=== PATIENT | male | born 1960 | race Caucasian/White ===

== ENCOUNTER 2020-06-15 19:24 | Emergency (ER) | payer MEDICARE, SELFPAY ==
[2020-06-15 19:48] VITALS: BP 150/75; PULSE 78; RESP 22; TEMP 35.6; O2SAT 96; BMI 24.4
--- NOTE | 2020-06-15 20:55 | XR_ITS ---
WS: [id number] Exam: XR chest 2V* [id number] Date/Time of Exam: 06/15/2020 8:55 PM Reason For Exam: cough Comparison 06/15/2017. Findings: The lungs are clear and fully expanded. Costophrenic angles are sharp. No infiltrates. Bronchovascula r relief appears normal. Cardiac silhouette is unremarkable. Bony elements are intact. XR/XR chest 2V* [id number] IMPRESSION: Unremarkable chest radiograph.
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
[2020-06-15 21:49] VITALS: BP 145/73; PULSE 75; RESP 19; O2SAT 95
[2020-06-15] MEDS: levoFLOXacin 500 mg Tablet PO (21:49)
== END 2020-06-15 21:49 | disposition home or self-care (01) ==
PROVIDERS: Emergency Provider Nurse Practitioner Family
DX: J02.9 Acute pharyngitis, unspecified (principal)
CPT/HCPCS: 12345; 71046; 99281; 99283

== ENCOUNTER 2021-10-19 07:05 | Day surgery (SDC) | payer MEDICARE, MEDICAID, SELFPAY ==
[2021-10-17 09:51] VITALS: BMI 24.4
[2021-10-19 07:23] VITALS: BP 105/81; PULSE 88; RESP 18; TEMP 36.1; O2SAT 96
[2021-10-19] MEDS: sodium chloride 0.9% 1,000 ML 30 ML IV (07:32)
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
--- NOTE | 2021-10-19 08:37 | W.PM.OPSUD ---
Surgery/Procedure H&P Update DATE OF PROCEDURE: October 19, 2021 DATE H&P PERFORMED: 10/09/21 CHANGES TO PREVIOUS DOCUMENTATION: None PREOP DIAGNOSIS: Diarrhea PRIMARY INDICATION FOR PROCEDURE: Chronic diarrhea PLANNED PROCEDURE: Operation Date: 10/19/21 08:30 Proposed Procedures p [id number]/ diarrhea(Not Applicable) - Francisco Javier Mckeon MD Related Problem List Diagnoses (1) Chronic diarrhea: Risks and benefits of the procedure were discussed with the patient including the risk of bleeding, perforation, and sedation.
[2021-10-19 09:06] VITALS: BP 95/67; PULSE 76; RESP 16; TEMP 36.2; O2SAT 93
[2021-10-19 09:23] VITALS: BP 112/85; PULSE 75; RESP 18; O2SAT 93
--- NOTE | 2021-10-19 11:30 | ANE.PACU2 ---
Inpatient post-anesthesia follow up: Airway intact: Yes Vital signs: Temperature 97.1 F Pulse Rate 75 Respiratory Rate 18 Blood Pressure 112/85 Pulse Oximetry 93 Oxygen Delivery Me thod Room Air Oxygen Flow Rate Fraction of Inspir ed Oxygen Hydration adequate: Yes Nausea and vomiting: No Pain level: 1 Mental status: Baseline
== END 2021-10-19 09:32 | disposition home or self-care (01) ==
PROVIDERS: Visit Provider Family Medicine
PROC: 0DJD8ZZ Inspection of Lower Intestinal Tract, Via Natural or Artificial Opening Endoscopic (ICD-10-PCS; CPT 45378; principal; 2021-10-19 08:30)
DX: K52.9 Noninfective gastroenteritis and colitis, unspecified (principal); D12.3 Benign neoplasm of transverse colon; F17.200 Nicotine dependence, unspecified, uncomplicated; J44.9 Chronic obstructive pulmonary disease, unspecified; K21.9 Gastro-esophageal reflux disease without esophagitis
CPT/HCPCS: 12345; 45385; 88305; J2704; J3490; J7030

== ENCOUNTER 2022-06-25 09:17 | Emergency (ER) | payer MEDICARE, MEDICAID, SELFPAY ==
[2022-06-25 09:29] VITALS: BP 129/81; PULSE 71; RESP 16; TEMP 36.4; O2SAT 95; BMI 23.4
--- NOTE | 2022-06-25 09:38 | XRR_ITS ---
PROCEDURE INFORMATION: Exam: XR Right Ribs with PA Chest Exam date and time: 06/25/2022 9:45 AM Age: 61 years old Clinical indication: Pain and injury or trauma; Fall; Rib area; Blunt trauma (contusions or hematomas); Chest wall pain; Right; Injury details: Fell and hit door on the RT side. Pain is on the RT lower side; Additional info: Rib pain TECHNIQUE: Imaging protocol: Radiologic exam of the Right ribs with PA chest. Views: 3 views COMPARISON: CR XR chest 2V* [id number] 06/15/2020 9:27 PM FINDINGS: Lungs: Small benign calcified granulomas are present in the lung bases.. No consolidation. Pleural spaces: Unremarkable. No pleural effusion. No pneumothorax. Heart/Mediastinum: Unremarkable. No cardiomegaly. Bones/joints: There is a fracture of the right 9th rib with about 9 mm of displacement. XR/XR ribs RT mn 3V w CXR1V [id number] IMPRESSION: Mildly displaced right 9th rib fracture.
[2022-06-25] MEDS: HYDROcodone-acetaminophen 5-325 mg Tablet 2 TAB PO (09:57)
[2022-06-25] MEDS: tetanus-dipt-pertussis 0.5 mL SDV IM (10:42)
--- NOTE | 2022-06-25 13:46 | ED_ITS ---
HPI - Fall General: Chief Complaint: Fall Stated Complaint: fall, right side rib pain Time Seen by Provider: 06/25/22 09:38 Source: patient Mode of arrival: ambulatory History of Present Illness: 61-year-old male presents emergency room yesterday he was getting out of a skid stock unloader through a front entry door. The door became loose from the hinges he was trying to keep it from falling and breaking a course of doing so he slept and landed on the edge of the sidewall of the stock unloader bucket on his right ribs. He has severe pain with any movement. He has been able to breathe without difficulty but deep breathing does cause discomfort. He denies fever sweats or chills. MD complaint: fall Onset (ago): day(s) (1) Fall from: standing Place fall occurred: home Loss of consciousness: None Prolonged down time: no Symptoms prior to fall: none Context: tripped/slipped Location of injury: chest (Right ribs) Associated symptoms-after fall: Reports chest pain; Denies abdominal pain, confusion, difficulty walking, headache(s), hematuria, lightheadedness, neck pain, numbness, short of breath, vertigo or weakness Review of Systems Const: Denies: fever(s), chills, body aches, change in appetite, fatigue or malaise ENMT: Denies: throat pain, ear or mastoid pain, nasal discharge or nasal congestion Card: Reports: chest pain; Denies: palpitations, irregular heart rhythm, edema or lightheadedness Resp: Denies: dyspnea, productive cough or non-productive cough GI: Denies: abdominal pain, nausea or vomiting : Denies: hematuria Musc: Denies: neck pain Skin/Breast: Denies: rash or pruritus Neuro: Denies: headache(s), difficulty walking, vertigo or confusion PFSH ED PFSH: Medical History (Updated 06/25/22 @ 14:28 by Mendez Marmolejo DO) Benign enlargement of prostate Chronic obstructive pulmonary disease, unspecified Chronic sinusitis, unspecified Dermatitis, unspecified Emphysema lung Hepatitis C Lumbago with sciatica, unspecified side Lyme disease, unspecified Non-Hodgkin lymphoma, unspecified, unspecified site Non-Hodgkin lymphoma, unspecified, unspecified site Other muscle spasm Surgical History (Updated 01/10/23 @ 14:28 by Mendez Marmolejo DO) H/O bladder repair surgery H/O colonoscopy Family History Father Cancer Social History Smoking and tobacco status: current every day smoker Physical Exam Const: GENERAL APPEARANCE: cooperative and comfortable ORIENTATION/CONSCIOUSNESS: Yes awake, Yes oriented to person, Yes oriented to place and Yes oriented to time HENMT: COMMON NORMALS: normocephalic, atraumatic and hearing grossly normal bilaterally HEAD & SCALP: normocephalic and atraumatic Resp: COMMON NORMALS: normal respiratory effort, No retractions, No use of accessory muscles and clear to auscultation bilaterally AUSCULTATION: clear to auscultation bilaterally Cardio: COMMON NORMALS: regular rate, regular rhythm and No murmurs present (Cardio) RATE: regular rate RHYTHM: regular rhythm GI: COMMON NORMALS: Soft to palpation and No hepatosplenomegaly present AUSCULTATION: Yes normoactive bowel sounds PALPATION: Yes Soft to palpation, No Tenderness to palpation present (GI), No Guarding due to palpation present (GI) and Yes No hepatosplenomegaly present Extremity: COMMON NORMALS: normal to inspection, capillary refill normal, no clubbing, cyanosis or edema, no calf tenderness and no pedal edema Neuro: SENSORIUM/ORIENTATION: Yes oriented to person, Yes oriented to place and Yes oriented to time Skin: COMMON NORMALS: no rashes or lesions noted GENERAL SKIN EXAM: no rashes or lesions noted Course Vital Signs: Vital signs: Vital Signs Temperature 97.5 F L 06/25/22 09:29 Pulse Rate 71 06/25/22 09:29 Respiratory Rate 16 06/25/22 09:29 Blood Pressure 129/81 06/25/22 09:29 Pulse Oximetry 95 06/25/22 09:29 Oxygen Delivery Me thod 06/25/22 09:29 MDM - Fall Medical Decision Making Closed fracture ninth rib lung intact. Discussed with the patient hydrocodone for pain ice discussed with him how to splint if he coughs or needs to take a deep breath avoid rib belts. Follow-up with primary care if not improving Medical Records I reviewed the patient's medical records. Lab Data I reviewed the patient's lab results. Radiology Impressions Ribs X-Ray 06/25/22 09:38 IMPRESSION: Mildly displaced right 9th rib fracture. Discharge Plan Discharge Patient Disposition: Home Clinical Impression: Closed rib fracture Condition: Stable Prescriptions: New hydrocodone-acetaminophen 5-325 mg tablet 1 tab PO Q6H PRN (Reason: pain) Qty: 25 0RF No Action amoxicillin 500 mg capsule 500 mg PO BID 7 Days Qty: 14 0RF Discharge Orders: Discharge ED (Routine); Ordered 06/25/22 Ordered By: Mendez Marmolejo Referrals: Jasmyn Black FNP [Primary Care Provider] - Discharge Diet: Usual diet Discharge Activity: Increase activity as tolerated Patient Instructions: Opioid Safety, Pain Management Activity Restrictions/Additional Instructions: You were seen today for rib pain after a fall. You did have a nondisplaced rib fracture. Use pain medicines above as needed. You can use ice over that area as well. You may increase your activity as you wish however initially any increased lifting twisting bending to the torso will likely significantly increase pain. If he has significant difficulty or worsening with shortness of breath return to the emergency room Coding Level of Care Code ED Manager Pediatric for Ciro Morales
== END 2022-06-25 10:44 | disposition home or self-care (01) ==
PROVIDERS: Emergency Provider Family Medicine; PCP Nurse Practitioner Family
DX: S22.31XA Fracture of one rib, right side, initial encounter for closed fracture (principal); J44.9 Chronic obstructive pulmonary disease, unspecified; Z86.19 Personal history of other infectious and parasitic diseases; Z85.72 Personal history of non-Hodgkin lymphomas; F17.210 Nicotine dependence, cigarettes, uncomplicated; W01.198A Fall on same level from slipping, tripping and stumbling with subsequent striking against other object, initial encounter; Z23 Encounter for immunization
CPT/HCPCS: 71101; 90471; 90715; 99284

== ENCOUNTER 2022-11-26 16:28 | Outpatient (CLI) | payer MEDICARE, MEDICAID, SELFPAY ==
--- NOTE | 2022-11-26 16:37 | CT_ITS ---
WS: [id number] LDCT LUNG CANCER SCREENING HISTORY: NICOTINE DEPENDENCE, CIGARETTES, UNCOMPLICATED TECHNIQUE: Axial imaging performed from the apices to 1 cm below the costophrenic angles. Coronal and sagittal reformats are submitted with axial MIP series. All CT scans at [facility] use at least one of these dose optimization techniques: automated exposure control; mA and/or kV adjustment per patient size (includes targeted exams where dose is matched to clinical indication); or iterativ e reconstruction. DLP: 62.49 mGy.cm DIvol: Mean CTDIvol: 1.10 (mGy) COMPARISON: None available. Diagnostic quality: Satisfactory Lungs: 3 mm noncalcified nodule LEFT upper lobe. Bilateral calcified granulomata. Subsegmental linear areas of atelectasis at the lung bases. No pneumonia. No endobronchial lesions. Heart: Normal size heart with no pericardial effusion.. Other findings: Calcified hilar lymph nodes. Minimal atherosclerosis aorta. No adrenal mass. Remote l ateral inferior RIGHT rib fracture. CT/CT lung screening [id number] IMPRESSION: LUNG-RADS: 2-Benign Appearance or Behavior FOLLOW UP: 12 Month: Continue annual screening with LDCT OTHER FINDINGS (S MODIFIER): None.
== END 2022-11-26 16:29 | disposition home or self-care (01) ==
LOC: RAD 16:33
PROVIDERS: PCP Internal Medicine; Visit Provider Internal Medicine
DX: Z12.2 Encounter for screening for malignant neoplasm of respiratory organs (principal); F17.210 Nicotine dependence, cigarettes, uncomplicated
CPT/HCPCS: 71271

== ENCOUNTER 2023-01-24 09:18 | Emergency (ER) | payer MEDICARE, SELFPAY ==
[2023-01-24] VITALS (8 sets, daily range): BP systolic 108–136; BP diastolic 72–87; PULSE 68–88; RESP 18; TEMP 36.8; O2SAT 88–98; BMI 25.1
--- NOTE | 2023-01-24 09:19 | W.ED.ALLEREA ---
HPI - Allergic Reaction General: Chief complaint: Allergic Reaction Stated complaint: Allergic Reaction Time Seen by Provider: 01/24/23 09:19 History of Present Illness: HPI narrative: Mr. Hawk is a 62-year-old gentleman presenting to the emergency department for evaluation of anaphylaxis. He notes chronic allergy type symptoms with frequent rhinorrhea and history of deviated septum. He has been on multiple courses of steroids and is still short of breath recently though no baseline oxygen requirement. He was at ENT clinic getting allergy testing and had an anaphylactic reaction with throat soreness/tightness, shortness of breath, nausea, itchy rash. He was given 50 mg Benadryl, 10 mg Decadron, 2 doses of subcutaneous epinephrine. He still feels mildly short of breath however largely symptoms have improved. He became more nauseous for EMS and was given Zofran. Denies similar episodes in the past. Severe intensity at worst and currently mild to moderate. No other specific changes in health, exacerbating, or alleviating factors identified. Review of Systems General: Reports: 10 or more systems reviewed and unremarkable except in HPI and below PFSH ED PFSH: Medical History Benign enlargement of prostate Chronic obstructive pulmonary disease, unspecified Chronic sinusitis, unspecified Dermatitis, unspecified Emphysema lung Hepatitis C Lumbago with sciatica, unspecified side Lyme disease, unspecified Non-Hodgkin lymphoma, unspecified, unspecified site Non-Hodgkin lymphoma, unspecified, unspecified site Other muscle spasm Surgical History H/O bladder repair surgery H/O colonoscopy Family History Father Cancer Social History Smoking and tobacco status: current every day smoker Physical Exam Const: COMMON NORMALS: alert GENERAL APPEARANCE: cooperative and well developed HENMT: COMMON NORMALS: normocephalic and atraumatic HEAD & SCALP: normocephalic and atraumatic THROAT: posterior oropharynx normal Eye: COMMON NORMALS: conjunctivae normal CONJUNCTIVA: Yes conjunctivae normal SCLERA: sclerae normal Neck/C-Spine: COMMON NORMALS: supple GENERAL: Yes trachea midline Resp: COMMON NORMALS: normal respiratory effort EFFORT & INSPECTION: Yes able to speak in complete sentences AUSCULTATION: wheezes and diminished lung sounds Cardio: COMMON NORMALS: regular rate and regular rhythm RATE: regular rate RHYTHM: regular rhythm GI: COMMON NORMALS: Soft to palpation PALPATION: Yes Soft to palpation and No Tenderness to palpation present (GI) PERCUSSION: normal to percussion Extremity: GENERAL: Yes normal exam except as noted and No edema Neuro: COMMON NORMALS: moves all extremities SENSORIUM/ORIENTATION: Yes alert and No Orientation impaired Psych: COMMON NORMALS: mental status grossly normal and Normal thought process present THOUGHT PROCESS: Normal thought process present Course Vital Signs: Vital signs: Vital Signs Temperature 98.3 F 01/24/23 09:20 Pulse Rate 88 01/24/23 12:18 Respiratory Rate 18 01/24/23 12:35 Blood Pressure 108/72 01/24/23 12:18 Pulse Oximetry 98 01/24/23 12:35 Oxygen Delivery Me thod Room Air 01/24/23 12:18 Oxygen Flow Rate 2 01/24/23 10:14 MDM - Allergic Reaction Medical Decision Making 62-year-old gentleman presenting for anaphylaxis treated prehospital. Exam as above. Mildly symptomatic. Labs with mild hemoconcentration. No significant metabolic abnormality. Chest x-ray with no lobar consolidation or pneumothorax. Treated with fluids, RT treatment, Pepcid. Continued to have improvement without evidence of recurrence on serial reexamination. The results of ED evaluation were discussed with the patient including prescriptions and/or symptomatic cares (if applicable) including appropriate and responsible use, followup plan, and return precautions. The patient verbalized understanding and felt safe for discharge. Medical Records I reviewed the patient's medical records. Lab Data I reviewed the patient's lab results. 01/24/23 09:01 01/24/23 09:01 Laboratory Results WBC 10.9 10^3/uL (4.0-10.0) H 01/24/23 09:01 RBC 5.44 10^6/uL (4.1-5.3) H 01/24/23 09:01 Hgb 17.4 g/dL (11.7-16.6) H 01/24/23 09:01 Hct 50.2 % (42.0-52.0) 01/24/23 09:01 MCV 92.3 fl (80-94) 01/24/23 09:01 MCH 32.0 pg (28.0-34.0) 01/24/23 09:01 MCHC 34.7 g/dL (30.0-36.0) 01/24/23 09:01 RDW 13.9 % (12.1-15.1) 01/24/23 09:01 Plt Count 353 10^3/cmm (130-400) 01/24/23 09:01 MPV 9.1 fL (7.4-10.4) 01/24/23 09:01 Neut % (Auto) 60.6 % 01/24/23 09:01 Lymph % (Auto) 30.1 % 01/24/23 09:01 [place] % (Auto) 7.5 % 01/24/23 09:01 Eos % (Auto) 0.9 % 01/24/23 09:01 Baso % (Auto) 0.3 % 01/24/23 09:01 Neut # (Auto) 6.58 10^3/uL (1.8-7.7) 01/24/23 09:01 Lymph # (Auto) 3.3 10^3/uL (0.8-4.8) 01/24/23 09:01 [place] # (Auto) 0.8 10^3/uL (0.2-0.9) 01/24/23 09:01 Eos # (Auto) 0.1 10^3/uL (0.0-0.8) 01/24/23 09:01 Baso # (Auto) 0.0 10^3/uL (0.0-0.1) 01/24/23 09:01 Nucleated RBC % (auto) 0 % 01/24/23 09:01 Nucleated RBCs # 0.0 /100WBC 01/24/23 09:01 Sodium 137 mmol/L (136-145) 01/24/23 09:01 Potassium 3.7 mmol/L (3.5-5.1) 01/24/23 09:01 Chloride 99 mmol/L (98-107) 01/24/23 09:01 Carbon Dioxide 22 mmol/L (22-29) 01/24/23 09:01 Anion Gap 19.7 (5-19) H 01/24/23 09:01 BUN 13 mg/dL (8-23) 01/24/23 09:01 Creatinine 0.8 mg/dL (0.7-1.2) 01/24/23 09:01 GFR Calculation 97.6 mL/min (90-130) 01/24/23 09:01 Glucose 151 mg/dL (65-115) H 01/24/23 09:01 Calculated Osmolality 287 mOsm/kg (285-295) 01/24/23 09:01 Calcium 9.4 mg/dL (8.5-10.5) 01/24/23 09:01 Total Bilirubin 0.7 mg/dL (0.15-1.2) 01/24/23 09:01 AST 19 U/L (0-40) 01/24/23 09: ALT 12 U/L (0-41) 01/24/23 09:01 Alkaline Phosphatase 85 U/L (40-130) 01/24/23 09:01 Total Protein 7.2 g/dL (6.6-8.7) 01/24/23 09:01 Albumin 4.6 g/dL (3.5-5.2) 01/24/23 09:01 Globulin 2.6 g/dL (1.3-4.6) 01/24/23 09:01 Discharge Plan Discharge Patient Disposition: Home Clinical Impression: Anaphylaxis Condition: Stable Prescriptions: New Pepcid 40 mg tablet 40 mg PO BID 5 Days Qty: 10 0RF prednisone 50 mg tablet 50 mg PO DAILY 5 Days Qty: 5 0RF ondansetron 4 mg tablet,disintegrating 4 mg PO Q8H PRN (Reason: nausea and vomiting) Qty: 15 0RF Benadryl 25 mg capsule 50 mg PO Q6H PRN (Reason: allergic reaction) Qty: 30 0RF Rx Instructions: 1 to 2 tabs q6h prn for allergic reaction symptoms EpiPen 2-Javier 0.3 mg/0.3 mL auto-injector 0.3 mg IM Q10M PRN (Reason: anaphylaxis) Qty: 2 5RF Rx Instructions: for 2 doses No Action ipratropium bromide 42 mcg (0.06 %) spray,non-aerosol See Rx Instructions .ROUTE .COMPLEX Rx Instructions: INSTILL 2 SPRAYS IN EACH NOSTRIL THREE TIMES DAILY. fluticasone propionate 50 mcg/actuation spray,suspension See Rx Instructions .ROUTE .COMPLEX Rx Instructions: INSTILL 2 SPRAYS IN EACH NOSTRIL TWICE DAILY Discharge Orders: Discharge ED (Routine); Ordered 01/24/23 Ordered By: Renard Porter Referrals: John Kwok MD [Primary Care Provider] - Discharge Diet: Usual diet Discharge Activity: Resume usual activity Patient Instructions: Anaphylaxis (ED) Activity Restrictions/Additional Instructions: Thank you for visiting the emergency department. You were seen about for anaphylactic reaction. We are pleased that you had sustained improvement with treatment. I will continue a course of steroids as well as Pepcid. You may also use Benadryl as needed for additional allergic reaction symptoms on top of this. I will prescribe EpiPen. Follow-up with your primary care provider. Return for recurrent symptoms or anything else that you are concerned about and feel needs emergency department evaluation. Coding Level of Care Code ED Prototype Technician for Ciro Morales
--- NOTE | 2023-01-24 09:24 | XR_ITS ---
WS: [id number] XR chest 1V portable [id number] REASON FOR EXAM: sob/anaphylaxis FINDINGS: The chest is unchanged compared to 07/09/2022. Moderate tortuosity and mild ectasia of the thoracic aorta. The heart is not enlarged. Calcified granulomatous disease in both hemithoraces. Focus of parenchymal scarring in the periphery of the right lower lung. No acute pulmonary parenchymal or pleural abnormality is identified. Significant degenerative spondylosis in the mid and lower thoracic spine. IMPRESSION: Stable chest without acute abnormality.
[2023-01-24] MEDS: famotidine 20 mg/2 mL INJ 40 MG IVP (09:36)
[2023-01-24] MEDS: sodium chloride 0.9% 1,000 ML 75 ML IV (09:36)
[2023-01-24 09:38] LABS: Basophils % 0.3 %; Eosinophils # 0.1 10^3/uL (0.0-0.8); Eosinophils % 0.9 %; Hematocrit 50.2 % (42.0-52.0); Hemoglobin 17.4 g/dL (11.7-16.6); Lymphocytes # 3.3 10^3/uL (0.8-4.8); Lymphocytes % 30.1 %; Mean Corpuscular HGB Conc 34.7 g/dL (30.0-36.0); Mean Corpuscular Volume 92.3 fl (80-94); Mean Platelet Volume 9.1 fL (7.4-10.4); Monocytes # 0.8 10^3/uL (0.2-0.9); Monocytes % 7.5 %; Neutrophils # 6.58 10^3/uL (1.8-7.7); Neutrophils % 60.6 %; Nucleated Red Blood Cells % 0 %; Platelet Count 353 10^3/cmm (130-400); Red Blood Count 5.44 10^6/uL (4.1-5.3); Red Cell Distribution Width 13.9 % (12.1-15.1); White Blood Count 10.9 10^3/uL (4.0-10.0)
[2023-01-24] MEDS: ipratropium-albuterol 3 mL Neb INHALATION (09:44)
[2023-01-24 10:00] LABS: Alanine Aminotransferase 12 U/L (0-41); Albumin Level 4.6 g/dL (3.5-5.2); Alkaline Phosphatase 85 U/L (40-130); Aspartate Amino Transferase 19 U/L (0-40); Blood Urea Nitrogen 13 mg/dL (8-23); Calcium 9.4 mg/dL (8.5-10.5); Carbon Dioxide 22 mmol/L (22-29); Chloride 99 mmol/L (98-107); Creatinine Clr Calc Pharmacy 104.0553; Globulin 2.6 g/dL (1.3-4.6); Glomerular Filtration Rate 97.6 mL/min (90-130); Glucose 151 mg/dL (65-115); Osmolality Calculated 287 mOsm/kg (285-295); Sodium 137 mmol/L (136-145); Total Bilirubin 0.7 mg/dL (0.15-1.2); Total Protein 7.2 g/dL (6.6-8.7)
[2023-01-24 10:04] LABS: Anion Gap 19.7 (5-19); Potassium 3.7 mmol/L (3.5-5.1)
== END 2023-01-24 12:36 | disposition home or self-care (01) ==
PROVIDERS: Emergency Provider Emergency Medicine; PCP Internal Medicine
DX: T78.2XXA Anaphylactic shock, unspecified, initial encounter (principal); X58.XXXA Exposure to other specified factors, initial encounter
CPT/HCPCS: 71045; 80053; 85025; 94640; 96374; 99284; J3490; J7030

== ENCOUNTER 2023-01-30 05:46 | Emergency (ER) | payer MEDICARE, SELFPAY ==
[2023-01-30 05:53] VITALS: BP 148/101; PULSE 78; RESP 18; TEMP 36.6; O2SAT 97; BMI 24.1
--- NOTE | 2023-01-30 05:55 | XRR_ITS ---
PROCEDURE INFORMATION: Exam: XR Right Elbow Exam date and time: 01/30/2023 6:03 AM Age: 62 years old Clinical indication: Injury or trauma; Fall; Blunt trauma (contusions or hematomas); Elbow; Right; Additional info: Pain TECHNIQUE: Imaging protocol: Radiologic exam of the right elbow. Views: 3 or more views. COMPARISON: No relevant prior studies available. FINDINGS: Bones/joints: Mild right elbow DJD. Concern for subtle fractured osteophyte of the olecranon. No dislocation. Soft tissues: Prominent posterior proximal forearm and posterior/medial elbow soft tissue swelling. XR/XR elbow RT min 3V* [id number] IMPRESSION: 1. Concern for subtle fractured osteophyte of the olecranon. 2. Soft tissue swelling.
--- NOTE | 2023-01-30 05:56 | ED_ITS ---
HPI - Extremity Injury (Upper) General: Chief Complaint: Extremity Injury, Upper Stated Complaint: Rt Elbow Infection\Fever Time Seen by Provider: 01/30/23 05:48 Source: patient Mode of arrival: ambulatory Limitations: no limitations History of Present Illness: 62-year-old male who had a laceration to his right elbow roughly 3 to 4 weeks ago he never had it repaired. States that over the last 3 to 4 days he has had some swelling and erythema his concern is getting infected. He denies any pain in the joint denies any fevers. Associated symptoms: Denies neck pain Review of Systems Const: Denies: fever(s), chills, body aches or change in appetite ENMT: Denies: throat pain or dental pain Card: Denies: chest pain Resp: Denies: dyspnea GI: Denies: abdominal pain, nausea, vomiting or diarrhea Musc: Reports: extremity pain and extremity swelling; Denies: neck pain or back pain Skin/Breast: Denies: rash PFSH ED PFSH: Medical History Benign enlargement of prostate Chronic obstructive pulmonary disease, unspecified Chronic sinusitis, unspecified Dermatitis, unspecified Emphysema lung Hepatitis C Lumbago with sciatica, unspecified side Lyme disease, unspecified Non-Hodgkin lymphoma, unspecified, unspecified site Non-Hodgkin lymphoma, unspecified, unspecified site Other muscle spasm Surgical History H/O bladder repair surgery H/O colonoscopy Family History Father Cancer Social History Smoking and tobacco status: current every day smoker Physical Exam Const: COMMON NORMALS: no acute distress, patient oriented x3 and healthy appearing HENMT: COMMON NORMALS: normocephalic and atraumatic HEAD & SCALP: normocephalic and atraumatic Neck/C-Spine: COMMON NORMALS: full ROM and supple Chest: COMMONS NORMALS: normal inspection of the chest and normal palpation of entire chest wall Resp: COMMON NORMALS: normal respiratory effort, No retractions, No use of accessory muscles and clear to auscultation bilaterally AUSCULTATION: clear to auscultation bilaterally Cardio: COMMON NORMALS: regular rate, regular rhythm and No murmurs present (Cardio) RATE: regular rate RHYTHM: regular rhythm GI: COMMON NORMALS: Normal to inspection, nondistended, normoactive bowel sounds present, Soft to palpation, non-tender and no masses PALPATION: Yes Soft to palpation Extremity: NARRATIVE EXTREMITY EXAM: Laceration to right elbow is healing with some erythema no abscess no drainage at this time full range of motion with no pain Neuro: COMMON NORMALS: patient oriented x3, moves all extremities and no focal motor deficits Psych: COMMON NORMALS: mental status grossly normal, Normal thought process present and cooperative THOUGHT PROCESS: Normal thought process present Skin: COMMON NORMALS: no rashes or lesions noted and no wounds GENERAL SKIN EXAM: no rashes or lesions noted Course Vital Signs: Vital signs: Vital Signs Temperature 97.9 F 01/30/23 05:53 Pulse Rate 78 01/30/23 05:53 Respiratory Rate 18 01/30/23 05:53 Blood Pressure 148/101 01/30/23 05:53 Pulse Oximetry 97 01/30/23 05:53 Oxygen Delivery Me thod Room Air 01/30/23 05:53 MDM - Extremity Injury (Upper) Medical Decision Making Patient presents for cellulitis is very minimal he has no signs of joint involvement no pain with range of motion we will place him on Augmentin he is to follow-up with PCP and return if worsening. Discharge Plan Discharge Patient Disposition: Home Clinical Impression: Cellulitis Condition: Stable Prescriptions: New Augmentin 500-125 mg tablet 1 tab PO BID Qty: 14 0RF No Action ipratropium bromide 42 mcg (0.06 %) spray,non-aerosol See Rx Instructions .ROUTE .COMPLEX Rx Instructions: INSTILL 2 SPRAYS IN EACH NOSTRIL THREE TIMES DAILY. fluticasone propionate 50 mcg/actuation spray,suspension See Rx Instructions .ROUTE .COMPLEX Rx Instructions: INSTILL 2 SPRAYS IN EACH NOSTRIL TWICE DAILY ondansetron 4 mg tablet,disintegrating 4 mg PO Q8H PRN (Reason: nausea and vomiting) Qty: 15 0RF Benadryl 25 mg capsule 50 mg PO Q6H PRN (Reason: allergic reaction) Qty: 30 0RF Rx Instructions: 1 to 2 tabs q6h prn for allergic reaction symptoms EpiPen 2-Javier 0.3 mg/0.3 mL auto-injector 0.3 mg IM Q10M PRN (Reason: anaphylaxis) Qty: 2 5RF Rx Instructions: for 2 doses Discharge Orders: Discharge ED (Routine); Ordered 01/30/23 Ordered By: Henrry Ohara Referrals: John Kwok MD [Primary Care Provider] - 1-3 days Discharge Diet: Advance as tolerated Discharge Activity: Resume usual activity Patient Instructions: Cellulitis (ED) Coding Level of Care Code ED [employer] for Ciro Morales
[2023-01-30 06:15] VITALS: BP 148/101; PULSE 78; RESP 18; TEMP 36.6; O2SAT 97
== END 2023-01-30 06:20 | disposition home or self-care (01) ==
PROVIDERS: Emergency Provider Emergency Medicine; PCP Internal Medicine
DX: L03.113 Cellulitis of right upper limb (principal); F17.210 Nicotine dependence, cigarettes, uncomplicated; J44.9 Chronic obstructive pulmonary disease, unspecified; Z86.19 Personal history of other infectious and parasitic diseases; Z85.72 Personal history of non-Hodgkin lymphomas
CPT/HCPCS: 73080; 99283